=== PATIENT | male | born 1980 | race Caucasian/White ===

== ENCOUNTER → 2019-07-25 | Outpatient (CLI) | payer BC ==
--- NOTE | 2019-07-25 07:44 | Diagnostic Imaging Report ---
PROCEDURE: US Gallbladder. TECHNIQUE: Multiple real-time grayscale images were obtained over the right upper quadrant in various projections. INDICATION: Hiccups. Cholelithiasis. FINDINGS: There are multiple gallstones in the gallbladder. The gallbladder is not distended. The gallbladder wall is upper limits of normal at 3 mm. There is no pericholecystic fluid. Common duct measures 6 mm. Liver parenchyma shows mild increased echogenicity consistent with fatty change. Liver is mildly enlarged measuring 17 cm. Considerable bowel gas obscures detail of the pancreas, aorta and vena cava. Portal vein shows normal flow with Doppler sampling. Right kidney appears normal measuring 10.5 x 5.5 cm. No ascites. IMPRESSION: 1. Cholelithiasis. No evidence of acute cholecystitis. 2. Fatty changes of the liver with mild hepatomegaly. Dictated by: Dictated on workstation # [id number]
== END ==
LOC: RAD 07:06
PROVIDERS: ATTEND Nurse Practitioner Family
DX: J02.0 Streptococcal pharyngitis (principal); K76.0 Fatty (change of) liver, not elsewhere classified; K80.20 Calculus of gallbladder without cholecystitis without obstruction; R06.6 Hiccough; R07.89 Other chest pain
CPT/HCPCS: 76705